=== PATIENT | female | born 1960 | race Caucasian/White ===

== ENCOUNTER 2016-12-11 21:56 | Emergency (ER) | payer MEDICARE, OTHER ==
[~2016-12-11 21:56] MED LIST: ABILIFY5 M1 PO; ASPI-COR81 M3 PO; ATRUD HHN; BRILINTA90 M1 PO; CIPROFLOXACIN500 MG PO; LEVAQUIN750 MG PO; LIPITOR40 MG; LIPITOR80 MG PO; METFORMIN500 M1 PO; NEU300 PO; NOR5 PO; NORCO1 TA2 PO; PAXIL40 MG PO; PRILOSEC20 MG PO; TRAZODONE100 MG PO; TRAZODONE50 M1 PO; VISTARIL25 MG PO; XANAX1 MG PO; ZOF4 PO
[2016-12-12 00:47] VITALS: BP 148/95
== END 2016-12-12 00:47 | disposition home or self-care (01) ==
LOC: ED 21:56
DX: B35.6 Tinea cruris (principal); E11.9 Type 2 diabetes mellitus without complications; I10 Essential (primary) hypertension; E78.00 Pure hypercholesterolemia, unspecified; I25.10 Atherosclerotic heart disease of native coronary artery without angina pectoris; E66.01 Morbid (severe) obesity due to excess calories; F17.210 Nicotine dependence, cigarettes, uncomplicated; Z91.02 Food additives allergy status; Z71.6 Tobacco abuse counseling
CPT/HCPCS: 99406

== ENCOUNTER 2016-12-24 14:54 | Inpatient (IN) | payer MEDICARE, OTHER ==
[~2016-12-24] VITALS: Ht 160 cm; Wt 101.6 kg
[2016-12-24 15:55] LABS: CALCIUM 9.2 mg/dL (8.5-10.1); CARBON DIOXIDE 25.8 mmol/L (21-32); CHLORIDE SERUM 107 mmol/L (98-107); CREATININE SERUM 0.8 mg/dL (0.6-1.0); GFR1 > 60 mL/min; GLUCOSE SERUM 108 mg/dL (74-106); POTASSIUM SERUM 3.9 mmol/L (3.5-5.1); SODIUM SERUM 141 mmol/L (136-145)
[2016-12-24 15:59] LABS: ALBUMIN 3.3 g/dL (3.4-5.0); ALKALINE PHOSPHATASE 102 U/L (46-116); ALT/SGPT 26 U/L (14-59); AST/SGOT 20 U/L (15-37); BILIRUBIN TOTAL 0.36 mg/dL (0.20-1.00); CHOLESTEROL 141 mg/dL (<200); CHOLESTEROL/HDL RATIO 3.3; HDL CHOLESTEROL 43 mg/dL (40-60); LIPASE 223 IU/L (73-393); TOTAL PROTEIN, SERUM 7.1 g/dL (6.4-8.2); TRIGLYCERIDES 221 mg/dL (<150)
[2016-12-24 16:07] LABS: FREE T4 0.82 ng/dL (0.76-1.46); FREE THYROXINE INDEX 2.6 ug/dL (1.4-4.5); T4(THYROXINE) 7.5 ug/dL (4.7-13.3)
[2016-12-24 16:11] LABS: T3 TOTAL 1.13 ng/mL
[2016-12-24 16:30] LABS: BASOPHIL % 0.6 % (0-2); PLATELET COUNT 258 x10^3mcL (130-400); RED CELL DISTRIBUTION WIDTH 16.4 % (11.5-14.5)
[2016-12-24 16:46] LABS: AMYLASE 65 U/L (25-115); LACTIC DEHYDROGENASE (LDH) 224 U/L (100-190)
[2016-12-24 17:21] VITALS: BP 122/89
[2016-12-24 17:23] VITALS: Ht 160 cm; Wt 101.6 kg
[2016-12-24 21:12] VITALS: BP 158/87
[2016-12-25 05:51] VITALS: BP 149/86
[2016-12-25 07:42] LABS: BASOPHIL % 0.5 % (0-2); PLATELET COUNT 243 x10^3mcL (130-400)
[2016-12-25 08:57] LABS: CALCIUM 8.2 mg/dL (8.5-10.1); CARBON DIOXIDE 26.1 mmol/L (21-32); CHLORIDE SERUM 105 mmol/L (98-107); CREATININE SERUM 0.5 mg/dL (0.6-1.0); GFR1 > 60 mL/min; GLUCOSE SERUM 106 mg/dL (74-106); PHOSPHOROUS 3.4 mg/dL (2.5-4.9); SODIUM SERUM 139 mmol/L (136-145)
[2016-12-25 10:00] VITALS: BP 183/88
[2016-12-25 11:07] LABS: microscopic required? YES; urine erythrocyte TRACE (NEGATIVE)
[2016-12-25 11:16] LABS: AMPHETAMINE QUAL UR NONE DETECTED (NEG <=1000)
[2016-12-25 14:00] VITALS: BP 165/76
[2016-12-25 21:20] VITALS: BP 151/92
[2016-12-26 06:21] VITALS: BP 129/71
[2016-12-26 07:08] LABS: CARBON DIOXIDE 28.2 mmol/L (21-32); CHLORIDE SERUM 104 mmol/L (98-107); CREATININE SERUM 0.7 mg/dL (0.6-1.0); GFR1 > 60 mL/min; GLUCOSE SERUM 115 mg/dL (74-106); MAGNESIUM 2.3 mg/dL (1.8-2.4); PHOSPHOROUS 3.8 mg/dL (2.5-4.9); POTASSIUM SERUM 3.6 mmol/L (3.5-5.1); SODIUM SERUM 141 mmol/L (136-145)
[2016-12-26 07:18] LABS: BASOPHIL % 0.6 % (0-2); PLATELET COUNT 288 x10^3mcL (130-400)
[2016-12-26 07:25] LABS: RED CELL DISTRIBUTION WIDTH 16.5 % (11.5-14.5)
[2016-12-26 09:15] VITALS: BP 148/80
[2016-12-26 13:15] VITALS: BP 139/85
== END 2016-12-26 18:03 | disposition left against medical advice (07) | DRG 391 ==
LOC: ED 14:54 → DU 16:08
PROVIDERS: Family Medicine; Specialist; ADMIT Family Medicine
DX: K21.9 Gastro-esophageal reflux disease without esophagitis (principal); N17.0 Acute kidney failure with tubular necrosis; I10 Essential (primary) hypertension; M50.31 Other cervical disc degeneration, high cervical region; J44.9 Chronic obstructive pulmonary disease, unspecified; E11.9 Type 2 diabetes mellitus without complications; I25.10 Atherosclerotic heart disease of native coronary artery without angina pectoris; E78.5 Hyperlipidemia, unspecified; F12.10 Cannabis abuse, uncomplicated; F41.0 Panic disorder [episodic paroxysmal anxiety]; F41.9 Anxiety disorder, unspecified; G47.00 Insomnia, unspecified; I25.2 Old myocardial infarction; Z79.82 Long term (current) use of aspirin; Z68.39 Body mass index [BMI] 39.0-39.9, adult; F17.210 Nicotine dependence, cigarettes, uncomplicated; Z95.5 Presence of coronary angioplasty implant and graft; Z79.84 Long term (current) use of oral hypoglycemic drugs; Z85.41 Personal history of malignant neoplasm of cervix uteri
CPT/HCPCS: 80307; 82962; 83880; 84439; C9113; G0480; J2060; J2405; J2765; J7030; Q0092; Q9966; Q9967

== ENCOUNTER 2018-08-01 21:01 | Inpatient (IN) | payer MEDICARE, OTHER ==
[~2018-08-01] VITALS: Ht 160 cm; Wt 81.2 kg
[2018-08-01 21:05] VITALS: Ht 160 cm; Wt 81.2 kg
[2018-08-01 21:42] LABS: BASOPHIL % 1.5 % (0-2); PLATELET COUNT 177 x10^3mcL (130-400); RED CELL DISTRIBUTION WIDTH 14.5 % (11.5-14.5)
[2018-08-01 21:53] LABS: CALCIUM 8.5 mg/dL (8.5-10.1); CARBON DIOXIDE 28.8 mmol/L (21-32); CHLORIDE SERUM 108 mmol/L (98-107); CREATININE SERUM 0.9 mg/dL (0.6-1.0); GFR1 > 60 mL/min; GLUCOSE SERUM 129 mg/dL (74-106); POTASSIUM SERUM 3.6 mmol/L (3.5-5.1); SODIUM SERUM 144 mmol/L (136-145)
[2018-08-01 21:58] LABS: ALKALINE PHOSPHATASE 99 U/L (46-116); ALT/SGPT 23 U/L (14-59); AST/SGOT 14 U/L (15-37); BILIRUBIN TOTAL 0.28 mg/dL (0.20-1.00); TOTAL PROTEIN, SERUM 7.3 g/dL (6.4-8.2)
[2018-08-01 21:59] LABS: ALBUMIN 3.3 g/dL (3.4-5.0)
[2018-08-01] MEDS ORDERED: AMO250L8 PO (22:12)
[2018-08-01] MEDS ORDERED: ZESTRIL20 MG PO (22:13)
[2018-08-01] MEDS ORDERED: ASPIR 8181 MG (22:14)
[2018-08-01] MEDS ORDERED: CARVEDILOL12.5 M1 (22:14)
[2018-08-01] MEDS ORDERED: BRILINTA90 M1 (22:14)
[2018-08-01] MEDS ORDERED: RANEXA500 M2 (22:14)
[2018-08-01] MEDS ORDERED: NITROSTAT0.4 MG (22:15)
[2018-08-01 23:29] VITALS: BP 114/67
[2018-08-02 02:30] VITALS: BP 114/67
[2018-08-02 02:34] LABS: CHOLESTEROL/HDL RATIO 3.5; MAGNESIUM 2.2 mg/dL (1.8-2.4); PHOSPHOROUS 3.8 mg/dL (2.5-4.9)
[2018-08-02 03:30] LABS: AMPHETAMINE QUAL UR NONE DETECTED (See below)
[2018-08-02 04:13] LABS: BASOPHIL % 0.4 % (0-2); PLATELET COUNT 158 x10^3mcL (130-400); RED CELL DISTRIBUTION WIDTH 14.5 % (11.5-14.5)
[2018-08-02 04:24] LABS: UA SPECIFIC GRAVITY 1.025 (1.005-1.035); microscopic required? YES; urine erythrocyte NEGATIVE (NEGATIVE)
[2018-08-02 04:25] LABS: CALCIUM 8.1 mg/dL (8.5-10.1); CHLORIDE SERUM 110 mmol/L (98-107); CREATININE SERUM 0.7 mg/dL (0.6-1.0); GFR1 > 60 mL/min; GLUCOSE SERUM 119 mg/dL (74-106); MAGNESIUM 2.2 mg/dL (1.8-2.4); PHOSPHOROUS 4.2 mg/dL (2.5-4.9); POTASSIUM SERUM 3.6 mmol/L (3.5-5.1); SODIUM SERUM 143 mmol/L (136-145)
[2018-08-02 05:33] VITALS: BP 121/68
[2018-08-02 09:05] VITALS: BP 140/74
[2018-08-02 12:38] VITALS: BP 132/79
[2018-08-02 15:33] VITALS: BP 127/74
[2018-08-02 20:53] VITALS: BP 135/78
[2018-08-03 04:55] VITALS: BP 105/81
[2018-08-03 08:42] VITALS: BP 122/74
[2018-08-03 11:36] VITALS: BP 136/79
[2018-08-03 16:31] VITALS: BP 112/67
[2018-08-03 21:02] VITALS: BP 136/73
[2018-08-04 05:49] VITALS: BP 145/83
[2018-08-04 06:46] LABS: PLATELET COUNT 213 x10^3mcL (130-400); RED CELL DISTRIBUTION WIDTH 14.5 % (11.5-14.5)
[2018-08-04 07:23] VITALS: BP 133/85
[2018-08-04 08:16] LABS: CALCIUM 9.1 mg/dL (8.5-10.1); CARBON DIOXIDE 26.5 mmol/L (21-32); CHLORIDE SERUM 104 mmol/L (98-107); CREATININE SERUM 0.8 mg/dL (0.6-1.0); GFR1 > 60 mL/min; GLUCOSE SERUM 154 mg/dL (74-106); PHOSPHOROUS 3.4 mg/dL (2.5-4.9); SODIUM SERUM 138 mmol/L (136-145)
[2018-08-04 10:59] VITALS: BP 141/83
[2018-08-04 12:01] LABS: BAND NEUTROPHIL 13 % (0-10); MONOCYTE 3 % (0-7); SEGMENTED NEUTROPHILS 80 % (37-75); rbc morphology (normal/abnorm) NORMAL (NORMAL)
[2018-08-04 12:02] LABS: PLATELET MORPHOLOGY PLATELETS NORMAL
[2018-08-04 17:03] VITALS: BP 129/78
[2018-08-04 20:12] VITALS: BP 159/94
[2018-08-05 05:28] VITALS: BP 158/88
[2018-08-05 08:17] VITALS: BP 168/97
[2018-08-05 09:27] VITALS: BP 168/103
== END 2018-08-05 11:09 | disposition left against medical advice (07) | DRG 205 ==
LOC: ED 21:01 → DU 22:47
PROVIDERS: Emergency Medicine; Internal Medicine
DX: M94.0 Chondrocostal junction syndrome [Tietze] (principal); J18.9 Pneumonia, unspecified organism; N17.0 Acute kidney failure with tubular necrosis; J44.1 Chronic obstructive pulmonary disease with (acute) exacerbation; E44.1 Mild protein-calorie malnutrition; E11.9 Type 2 diabetes mellitus without complications; I25.10 Atherosclerotic heart disease of native coronary artery without angina pectoris; F15.21 Other stimulant dependence, in remission; F14.21 Cocaine dependence, in remission; F41.9 Anxiety disorder, unspecified; F12.10 Cannabis abuse, uncomplicated; I10 Essential (primary) hypertension; D72.829 Elevated white blood cell count, unspecified; F31.9 Bipolar disorder, unspecified; I25.2 Old myocardial infarction; Z79.82 Long term (current) use of aspirin; Z68.31 Body mass index [BMI] 31.0-31.9, adult; F17.210 Nicotine dependence, cigarettes, uncomplicated; Z79.84 Long term (current) use of oral hypoglycemic drugs; Z95.5 Presence of coronary angioplasty implant and graft; Z85.41 Personal history of malignant neoplasm of cervix uteri
CPT/HCPCS: 82962; 83880; 85378; J1956; J2270; J2920; J3480; J7030; J7620; J7626; Q0162

== ENCOUNTER 2018-09-01 21:02 | Inpatient (IN) | payer MEDICARE, OTHER ==
[~2018-09-01] VITALS: Ht 157.5 cm; Wt 80.5 kg
[~2018-09-01 21:02] MED LIST changes: +AMO250L8 PO; +ASPIR 8181 MG; +BRILINTA90 M1; +CARVEDILOL12.5 M1; +NITROSTAT0.4 MG; +RANEXA500 M2; +ZESTRIL20 MG PO
[2018-09-01 21:21] VITALS: Ht 157.5 cm; Wt 80.5 kg
[2018-09-01 22:15] LABS: BASOPHIL % 0.1 % (0-2); PLATELET COUNT 281 x10^3mcL (130-400)
[2018-09-01 22:16] LABS: RED CELL DISTRIBUTION WIDTH 14.8 % (11.5-14.5)
[2018-09-01 22:37] LABS: CALCIUM 8.6 mg/dL (8.5-10.1); CARBON DIOXIDE 24.3 mmol/L (21-32); CHLORIDE SERUM 103 mmol/L (98-107); CREATININE SERUM 0.8 mg/dL (0.6-1.0); GFR1 > 60 mL/min; GLUCOSE SERUM 126 mg/dL (74-106); POTASSIUM SERUM 3.2 mmol/L (3.5-5.1); SODIUM SERUM 138 mmol/L (136-145)
[2018-09-01 22:40] LABS: ALBUMIN 3.6 g/dL (3.4-5.0); ALKALINE PHOSPHATASE 91 U/L (46-116); ALT/SGPT 28 U/L (14-59); AST/SGOT 21 U/L (15-37)
[2018-09-01] MEDS ORDERED: METOPROLOL TART50 MG PO (23:23)
[2018-09-01] MEDS ORDERED: TRAZODONE50 M1 PO (23:24)
[2018-09-01] MEDS ORDERED: HCTZ/LISINOPRIL1 TA1 PO (23:24)
[2018-09-02] VITALS: BP 149/87
[2018-09-02 00:34] LABS: PHOSPHOROUS 3.2 mg/dL (2.5-4.9)
[2018-09-02 00:36] LABS: CHOLESTEROL/HDL RATIO 4.4
[2018-09-02 04:50] VITALS: BP 115/63
[2018-09-02 07:22] LABS: CALCIUM 8.2 mg/dL (8.5-10.1); CARBON DIOXIDE 25.3 mmol/L (21-32); CHLORIDE SERUM 105 mmol/L (98-107); CREATININE SERUM 0.8 mg/dL (0.6-1.0); GFR1 > 60 mL/min; GLUCOSE SERUM 99 mg/dL (74-106); PHOSPHOROUS 3.4 mg/dL (2.5-4.9); POTASSIUM SERUM 3.5 mmol/L (3.5-5.1); SODIUM SERUM 139 mmol/L (136-145)
[2018-09-02 07:34] LABS: BASOPHIL % 0.4 % (0-2); PLATELET COUNT 233 x10^3mcL (130-400)
[2018-09-02 07:45] LABS: RED CELL DISTRIBUTION WIDTH 14.9 % (11.5-14.5)
[2018-09-02 09:30] VITALS: BP 123/71
[2018-09-02 09:32] LABS: UA SPECIFIC GRAVITY >=1.030 (1.005-1.035); microscopic required? YES; urine erythrocyte NEGATIVE (NEGATIVE)
[2018-09-02 17:47] VITALS: BP 133/77
[2018-09-02 21:08] VITALS: BP 115/56
[2018-09-03 05:59] VITALS: BP 104/55
[2018-09-03 06:09] LABS: BASOPHIL % 0.6 % (0-2); PLATELET COUNT 221 x10^3mcL (130-400); RED CELL DISTRIBUTION WIDTH 14.4 % (11.5-14.5)
[2018-09-03 06:35] LABS: CALCIUM 8.6 mg/dL (8.5-10.1); CARBON DIOXIDE 25.3 mmol/L (21-32); CHLORIDE SERUM 103 mmol/L (98-107); CREATININE SERUM 0.8 mg/dL (0.6-1.0); GFR1 > 60 mL/min; GLUCOSE SERUM 74 mg/dL (74-106); MAGNESIUM 1.9 mg/dL (1.8-2.4); PHOSPHOROUS 2.7 mg/dL (2.5-4.9); SODIUM SERUM 138 mmol/L (136-145)
[2018-09-03 09:15] VITALS: BP 93/52
[2018-09-03 11:47] VITALS: BP 93/52
== END 2018-09-03 12:05 | disposition home or self-care (01) | DRG 205 ==
LOC: ED 21:02 → DU 22:57
PROVIDERS: Emergency Medicine; General Practice; Internal Medicine
DX: M94.0 Chondrocostal junction syndrome [Tietze] (principal); N17.0 Acute kidney failure with tubular necrosis; I10 Essential (primary) hypertension; I25.10 Atherosclerotic heart disease of native coronary artery without angina pectoris; E87.6 Hypokalemia; J44.9 Chronic obstructive pulmonary disease, unspecified; A08.4 Viral intestinal infection, unspecified; F32.9 Major depressive disorder, single episode, unspecified; F41.1 Generalized anxiety disorder; E78.5 Hyperlipidemia, unspecified; I25.2 Old myocardial infarction; Z68.31 Body mass index [BMI] 31.0-31.9, adult; Z95.5 Presence of coronary angioplasty implant and graft; Z85.41 Personal history of malignant neoplasm of cervix uteri; F17.210 Nicotine dependence, cigarettes, uncomplicated
CPT/HCPCS: 82962; 83880; 87046; 87046-59; J1885; J2270; J2405; J3010; J7030; Q0092

== ENCOUNTER 2018-10-02 15:23 | Emergency (ER) | payer MEDICARE, OTHER ==
[~2018-10-02] VITALS: Ht 157.5 cm; Wt 80.3 kg
[~2018-10-02 15:23] MED LIST changes: +HCTZ/LISINOPRIL1 TA1 PO; +METOPROLOL TART50 MG PO
[2018-10-02 15:33] VITALS: Ht 157.5 cm; Wt 80.3 kg
[2018-10-02 17:45] VITALS: BP 160/89
== END 2018-10-02 17:45 | disposition home or self-care (01) ==
LOC: ED 15:23
DX: J06.9 Acute upper respiratory infection, unspecified (principal); J44.1 Chronic obstructive pulmonary disease with (acute) exacerbation; I10 Essential (primary) hypertension; E11.9 Type 2 diabetes mellitus without complications; K21.9 Gastro-esophageal reflux disease without esophagitis; F31.9 Bipolar disorder, unspecified; I25.2 Old myocardial infarction; Z88.8 Allergy status to other drugs, medicaments and biological substances; Z85.41 Personal history of malignant neoplasm of cervix uteri
CPT/HCPCS: J3010; J7512; J7613; J7644; Q0092; Q0162

== ENCOUNTER 2018-10-26 18:17 | Inpatient (IN) | payer MEDICARE, OTHER ==
[~2018-10-26] VITALS: Ht 157.5 cm; Wt 79.9 kg
[2018-10-26 18:35] VITALS: Ht 157.5 cm; Wt 79.9 kg
[2018-10-26 19:17] LABS: BASOPHIL % 0.3 % (0-2); PLATELET COUNT 200 x10^3mcL (130-400); RED CELL DISTRIBUTION WIDTH 14.9 % (11.5-14.5)
[2018-10-26 19:22] LABS: CALCIUM 9.1 mg/dL (8.5-10.1); CARBON DIOXIDE 29.2 mmol/L (21-32); CHLORIDE SERUM 103 mmol/L (98-107); CREATININE SERUM 0.9 mg/dL (0.6-1.0); GFR1 > 60 mL/min; GLUCOSE SERUM 103 mg/dL (74-106); POTASSIUM SERUM 4.1 mmol/L (3.5-5.1); SODIUM SERUM 139 mmol/L (136-145)
[2018-10-26 19:26] LABS: ALBUMIN 3.4 g/dL (3.4-5.0); ALKALINE PHOSPHATASE 81 U/L (46-116); ALT/SGPT 17 U/L (14-59); AST/SGOT 16 U/L (15-37); BILIRUBIN TOTAL 0.52 mg/dL (0.20-1.00); TOTAL PROTEIN, SERUM 7.9 g/dL (6.4-8.2)
[2018-10-26] MEDS ORDERED: KROGER NIC21 MG/24 H (22:58)
[2018-10-27] VITALS (7 sets, daily range): BP systolic 103–136; BP diastolic 58–85
[2018-10-27 00:15] LABS: CHOLESTEROL/HDL RATIO 3.6; MAGNESIUM 2.4 mg/dL (1.8-2.4); PHOSPHOROUS 4.3 mg/dL (2.5-4.9)
[2018-10-27 06:13] LABS: PLATELET COUNT 211 x10^3mcL (130-400)
[2018-10-27 06:27] LABS: CALCIUM 8.8 mg/dL (8.5-10.1); CARBON DIOXIDE 28.1 mmol/L (21-32); CHLORIDE SERUM 100 mmol/L (98-107); GFR1 > 60 mL/min; GLUCOSE SERUM 197 mg/dL (74-106); MAGNESIUM 2.4 mg/dL (1.8-2.4); SODIUM SERUM 137 mmol/L (136-145)
[2018-10-27 07:12] LABS: BASOPHIL % 0 % (0-2); RED CELL DISTRIBUTION WIDTH 15.1 % (11.5-14.5)
[2018-10-27 16:46] LABS: AMPHETAMINE QUAL UR NONE DETECTED (See below)
[2018-10-28 05:37] VITALS: BP 115/64
[2018-10-28 07:01] LABS: CALCIUM 8.5 mg/dL (8.5-10.1); CARBON DIOXIDE 24.4 mmol/L (21-32); CHLORIDE SERUM 106 mmol/L (98-107); CREATININE SERUM 0.8 mg/dL (0.6-1.0); GFR1 > 60 mL/min; GLUCOSE SERUM 181 mg/dL (74-106); POTASSIUM SERUM 3.7 mmol/L (3.5-5.1); SODIUM SERUM 140 mmol/L (136-145)
[2018-10-28 07:30] LABS: PLATELET COUNT 197 x10^3mcL (130-400)
[2018-10-28 07:48] LABS: BASOPHIL % 0 % (0-2); RED CELL DISTRIBUTION WIDTH 15.1 % (11.5-14.5)
[2018-10-28 08:00] VITALS: BP 126/76
[2018-10-28 13:40] VITALS: BP 141/78
[2018-10-28] MEDS ORDERED: TOPAMAX25 MG PO (13:48)
[2018-10-28] MEDS ORDERED: MEDDP PO (13:49)
[2018-10-28 14:21] VITALS: BP 141/78
== END 2018-10-28 14:37 | disposition home or self-care (01) | DRG 193 ==
LOC: ED 18:17 → DU 22:15
PROVIDERS: Emergency Medicine; ADMIT Internal Medicine
DX: J18.9 Pneumonia, unspecified organism (principal); J96.00 Acute respiratory failure, unspecified whether with hypoxia or hypercapnia; F31.60 Bipolar disorder, current episode mixed, unspecified; J44.1 Chronic obstructive pulmonary disease with (acute) exacerbation; E11.65 Type 2 diabetes mellitus with hyperglycemia; I25.10 Atherosclerotic heart disease of native coronary artery without angina pectoris; F41.1 Generalized anxiety disorder; F12.10 Cannabis abuse, uncomplicated; F17.210 Nicotine dependence, cigarettes, uncomplicated; I25.2 Old myocardial infarction; Z68.29 Body mass index [BMI] 29.0-29.9, adult; Z95.5 Presence of coronary angioplasty implant and graft; Z79.84 Long term (current) use of oral hypoglycemic drugs
CPT/HCPCS: 36600; 82962; 83880; 87804; 94150; G0378; J0456; J0696; J2920; J2930; J7030; J7050; J7613; J7620; J7644; Q0092

== ENCOUNTER 2018-12-08 07:23 | Inpatient (IN) | payer MEDICARE, OTHER ==
[~2018-12-08] VITALS: Ht 160 cm; Wt 84.1 kg
[~2018-12-08 07:23] MED LIST changes: +KROGER NIC21 MG/24 H; +MEDDP PO; +TOPAMAX25 MG PO
[2018-12-08 07:27] VITALS: Ht 160 cm; Wt 84.1 kg
[2018-12-08 08:05] LABS: BASOPHIL % 0.5 % (0-2); PLATELET COUNT 245 x10^3mcL (130-400)
[2018-12-08 08:07] LABS: RED CELL DISTRIBUTION WIDTH 15.8 % (11.5-14.5)
[2018-12-08 08:19] LABS: CALCIUM 8.4 mg/dL (8.5-10.1); CARBON DIOXIDE 24.2 mmol/L (21-32); CHLORIDE SERUM 108 mmol/L (98-107); CREATININE SERUM 0.9 mg/dL (0.6-1.0); GFR1 > 60 mL/min; GLUCOSE SERUM 120 mg/dL (74-106); SODIUM SERUM 143 mmol/L (136-145)
[2018-12-08 08:23] LABS: ALBUMIN 3.4 g/dL (3.4-5.0); ALKALINE PHOSPHATASE 98 U/L (46-116); ALT/SGPT 36 U/L (14-59); AST/SGOT 30 U/L (15-37); BILIRUBIN TOTAL 0.48 mg/dL (0.20-1.00); TOTAL PROTEIN, SERUM 7.1 g/dL (6.4-8.2)
[2018-12-08 11:14] VITALS: BP 141/80
[2018-12-08 13:10] VITALS: BP 141/80
[2018-12-08 16:43] VITALS: BP 137/79
[2018-12-08 21:05] VITALS: BP 146/85
[2018-12-09 05:57] VITALS: BP 143/84
[2018-12-09] MEDS ORDERED: ZITHROMAX TRI-500 MG PO (08:53)
[2018-12-09] MEDS ORDERED: BREO ELLIPTA1 PO1 IH (08:53)
[2018-12-09] MEDS ORDERED: SINGULAIR10 MG PO (08:54)
[2018-12-09] MEDS ORDERED: PROAIR HFA8.5 GM IH (08:55)
[2018-12-09 08:59] VITALS: BP 132/78
[2018-12-09 11:57] VITALS: BP 137/80
[2018-12-09 12:05] VITALS: BP 137/80
== END 2018-12-09 14:10 | disposition home or self-care (01) | DRG 194 ==
LOC: ED 07:23 → DU 09:35
PROVIDERS: Emergency Medicine; ADMIT Internal Medicine
DX: R09.1 Pleurisy (principal); J44.1 Chronic obstructive pulmonary disease with (acute) exacerbation; I11.9 Hypertensive heart disease without heart failure; I25.10 Atherosclerotic heart disease of native coronary artery without angina pectoris; E11.59 Type 2 diabetes mellitus with other circulatory complications; F32.9 Major depressive disorder, single episode, unspecified; F31.9 Bipolar disorder, unspecified; F41.9 Anxiety disorder, unspecified; I25.2 Old myocardial infarction; Z95.5 Presence of coronary angioplasty implant and graft; Z85.41 Personal history of malignant neoplasm of cervix uteri; Z79.82 Long term (current) use of aspirin
CPT/HCPCS: 83880; J0456; J0696; J1650; J1885; J2060; J2405; J2920; J3490; J7050; J7620; Q0092

== ENCOUNTER 2018-12-23 07:48 | Inpatient (IN) | payer MEDICARE, OTHER ==
[~2018-12-23] VITALS: Ht 160 cm; Wt 88.9 kg
[~2018-12-23 07:48] MED LIST changes: +BREO ELLIPTA1 PO1 IH; +PROAIR HFA8.5 GM IH; +SINGULAIR10 MG PO; +ZITHROMAX TRI-500 MG PO
[2018-12-23 07:53] VITALS: Ht 160 cm; Wt 88.9 kg
[2018-12-23 08:35] LABS: PLATELET COUNT 179 x10^3mcL (130-400)
[2018-12-23 08:36] LABS: RED CELL DISTRIBUTION WIDTH 16.6 % (11.5-14.5)
[2018-12-23 08:53] LABS: FREE T4 0.94 ng/dL (0.76-1.46); FREE THYROXINE INDEX 2.8 ug/dL (1.4-4.5); T4(THYROXINE) 8.1 ug/dL (4.7-13.3)
[2018-12-23 09:03] LABS: T3 TOTAL 1.09 ng/mL
[2018-12-23 09:47] LABS: ALBUMIN 3.3 g/dL (3.4-5.0); ALKALINE PHOSPHATASE 93 U/L (46-116); ALT/SGPT 78 U/L (14-59); AST/SGOT 34 U/L (15-37); BILIRUBIN TOTAL 0.51 mg/dL (0.20-1.00); C REACTIVE PROTEIN 1.4 mg/dL (<=0.9); CALCIUM 8.2 mg/dL (8.5-10.1); CARBON DIOXIDE 25.4 mmol/L (21-32); CHLORIDE SERUM 105 mmol/L (98-107); CREATININE SERUM 0.7 mg/dL (0.6-1.0); GFR1 > 60 mL/min; GLUCOSE SERUM 116 mg/dL (74-106); POTASSIUM SERUM 4.2 mmol/L (3.5-5.1); SODIUM SERUM 139 mmol/L (136-145); TOTAL PROTEIN, SERUM 6.7 g/dL (6.4-8.2)
[2018-12-23 09:58] LABS: microscopic required? NO
[2018-12-23] MEDS ORDERED: XAN1 PO (10:13)
[2018-12-23] MEDS ORDERED: BRILINTA90 M1 PO (10:13)
[2018-12-23] MEDS ORDERED: TRAZODONE150 M1 PO (10:14)
[2018-12-23] MEDS ORDERED: TRAMADOL HCL50 MG PO (10:15)
[2018-12-23] MEDS ORDERED: ALBUD HHN (10:15)
[2018-12-23] MEDS ORDERED: LIDOCAINE AND P1 CRE TOP (10:16)
[2018-12-23] MEDS ORDERED: BENADRYL ALLERG25 M1 PO (10:16)
[2018-12-23] MEDS ORDERED: BREO ELLIPTA1 PO1 IH (10:17)
[2018-12-23] MEDS ORDERED: KROGER NIC21 MG/24 H TOP (10:18)
[2018-12-23] MEDS ORDERED: ASPIRIN81 MG PO (10:18)
[2018-12-23 10:32] LABS: ERYTHROCYTE SED RATE 9 mm/hr (0-30)
[2018-12-23 10:38] LABS: UA SPECIFIC GRAVITY 1.025 (1.005-1.035); urine erythrocyte NEGATIVE (NEGATIVE)
[2018-12-23 11:13] LABS: BASOPHIL 0 % (0-2); MONOCYTE 4 % (0-7)
[2018-12-23 11:14] LABS: BAND NEUTROPHIL 10 % (0-10); SEGMENTED NEUTROPHILS 80 % (37-75)
[2018-12-23 11:15] LABS: PLATELET MORPHOLOGY PLATELETS NORMAL; rbc morphology (normal/abnorm) ABNORMAL (NORMAL)
[2018-12-23 14:19] VITALS: BP 135/68
[2018-12-23 14:20] VITALS: BP 156/89
[2018-12-23 17:27] VITALS: BP 146/85
[2018-12-23 19:20] VITALS: BP 126/69
== END 2018-12-24 04:25 | disposition left against medical advice (07) | DRG 190 ==
LOC: ED 07:48 → DU 09:51
PROVIDERS: Specialist; ADMIT Internal Medicine
DX: J44.1 Chronic obstructive pulmonary disease with (acute) exacerbation (principal); N17.0 Acute kidney failure with tubular necrosis; E11.9 Type 2 diabetes mellitus without complications; I10 Essential (primary) hypertension; F31.9 Bipolar disorder, unspecified; G47.33 Obstructive sleep apnea (adult) (pediatric); F41.9 Anxiety disorder, unspecified; F17.210 Nicotine dependence, cigarettes, uncomplicated; I25.10 Atherosclerotic heart disease of native coronary artery without angina pectoris; Z95.5 Presence of coronary angioplasty implant and graft; I25.2 Old myocardial infarction; Z79.84 Long term (current) use of oral hypoglycemic drugs
CPT/HCPCS: 36600; 82962; 83880; 84439; J0456; J0696; J1650; J1956; J2270; J2920; J2930; J3010; J7030; J7613; J7620; J7644; Q0092

== ENCOUNTER 2019-03-28 06:07 | Inpatient (IN) | payer MEDICARE, OTHER ==
[~2019-03-28] VITALS: Ht 160 cm; Wt 77.6 kg
[~2019-03-28 06:07] MED LIST changes: +ALBUD HHN; +ASPIRIN81 MG PO; +BENADRYL ALLERG25 M1 PO; +KROGER NIC21 MG/24 H TOP; +LIDOCAINE AND P1 CRE TOP; +TRAMADOL HCL50 MG PO; +TRAZODONE150 M1 PO; +XAN1 PO
[2019-03-28 06:12] VITALS: Ht 160 cm; Wt 77.6 kg
--- NOTE | 2019-03-28 06:26 | NUR ---
PATIENT SEEN WITH COMPLAINT OF HAVING PROGRESSIVE SOB. REPORTS SHE HAS COPD AND RAN OUT OF HER INHALER. SEEN WITH MIL DYSPNEA AT REST. PATIENT REQUESTING OXYGEN. SATURATION IS 99%;. PATIENT WAS PLACE ON 1.5 LITER OF OXYGEN. PATIENT IS WAIITNG TO BE SEEN BY .
--- NOTE | 2019-03-28 07:03 | NUR ---
PORTABLE CHEST XRAY WAS DONE.
--- NOTE | 2019-03-28 07:13 | NUR ---
CAB DRIVER AT THE BEDSIDE TO DRAW BLOOD.
[2019-03-28 07:37] LABS: BASOPHIL % 0.5 % (0-2); PLATELET COUNT 240 x10^3mcL (130-400); RED CELL DISTRIBUTION WIDTH 16.3 % (11.5-14.5)
[2019-03-28 07:40] LABS: CALCIUM 9.1 mg/dL (8.5-10.1); CARBON DIOXIDE 22.9 mmol/L (21-32); CHLORIDE SERUM 106 mmol/L (98-107); CREATININE SERUM 0.7 mg/dL (0.6-1.0); GFR1 > 60 mL/min; GLUCOSE SERUM 83 mg/dL (74-106); POTASSIUM SERUM 3.6 mmol/L (3.5-5.1); SODIUM SERUM 140 mmol/L (136-145)
[2019-03-28 07:44] LABS: ALKALINE PHOSPHATASE 89 U/L (46-116); ALT/SGPT 21 U/L (14-59); AST/SGOT 14 U/L (15-37); BILIRUBIN TOTAL 0.57 mg/dL (0.20-1.00); TOTAL PROTEIN, SERUM 6.9 g/dL (6.4-8.2)
--- NOTE | 2019-03-28 07:44 | NUR ---
PT DENIES SOB AT THIS TIME STATESz"IM SO HUNGRY "I WILL INFORM DR ESTES
[2019-03-28 07:45] LABS: ALBUMIN 3.1 g/dL (3.4-5.0)
--- NOTE | 2019-03-28 08:34 | NUR ---
PER DR DARIO SMALL FOR REGULAR FOOD TRAY, ORDERED BY [employer] TECH
--- NOTE | 2019-03-28 08:48 | NUR ---
BREATHING TX IN PROGRESS AT THIS TIME,PT A/AX4 TOLERATING VERY WELL
--- NOTE | 2019-03-28 08:52 | NUR ---
BLOD CULTURES JUST NOW COLLECTED BY LAB PER ORDERS I WILL START THE IV ANTIBIOTICS
--- NOTE | 2019-03-28 09:31 | NUR ---
PT EATING A BREAKFAST TRAY PER ORDERS, PT ADMITS TO FEELING BETTER WITH HER RIGHT UPPER CP PAIN FROM EARLIER, I WONT GIVE ANY MORE NITRO AT THIS POINT. PT REMAINS ON CM NSR NO ECT. C/L IN REACH
--- NOTE | 2019-03-28 10:15 | NUR ---
RECIEVED REPORT FROM TREVOR CAMPUZANO. AT BEDSIDE PT IS AAOX4, RESPS E/U, SKIN IS PINK, WARM AND DRY. PT CALM AND COOPERATIVE.
--- NOTE | 2019-03-28 12:05 | NUR ---
PT RESTING IN POSITOIN OF COMFORT. NO ACUTE DISTRESS NOTED. RESPS E/U, SKIN IS PINK, WARM AND DRY.
--- NOTE | 2019-03-28 12:14 | NUR ---
PT DENIES TAKING ANY HOME MEDS FOR >45 DAYS
--- NOTE | 2019-03-28 12:17 | NUR ---
DAUGHTER AT BEDSIDE NOW. PT ALSO GIVEN A LUNCH TRAY.
--- NOTE | 2019-03-28 12:25 | NUR ---
REPORT HAND-OFF TO TREVOR VAZQUEZ FROM THE TELE UNIT.
--- NOTE | 2019-03-28 12:42 | NUR ---
PT C/O LEFT HAND IV SITE "ITS IN THE WAY OF EVERYTHING BUT IM A HARD STICK" I OFFERED TO RESTART IV, I WAS ABLE TO GET IT RESTARTED IN RIGHT HAND 22G WITH GOOD BLOOD RETURN IV NOW INFUSING PER ORDERS.
[2019-03-28 13:01] VITALS: BP 145/73
[2019-03-28 13:19] VITALS: BP 145/92
--- NOTE | 2019-03-28 13:34 | NUR ---
RECEIVED PT FROM ER VIA [facility] ACCOMPANIED WITH NURSE AND EMT, PT SEEN, ALERT AND ORIENTED, DENIES DIZZINESS BUT C/O OF HEADACHE, BREATHING EVEN AND UNLABORED, MILD SOB ON EXERTION, LUNG SOUNDS DIMISHSED, ON ROOM AIR WITH SPO2:100%, NO RESP DISTRESS NOTED, ON TELE#1 NSR W/BBB AND ST ELEVATION, DENIES CHEST PAIN AT THIS TIME, IVF INFUSING WELL WITH LEVAQUIN TO RW, PULSES PALPABLE, NO EDEMA NOTED, GENERALIZED WEAKNESS, USES WALKER, CANE OR WC AT HOME, C/O OF NAUSEA BUT NO VOMITING NOTED, ABD SOFT WITH ACTIVE BS, NO BM AT THIS TIME, DENIES ANY PROBLEM WITH VOIDING, NO DISTRESS NOTED, WILL KEEP TO MONITOR.
[2019-03-28 15:59] VITALS: BP 150/99
--- NOTE | 2019-03-28 16:30 | NUR ---
SPOT ACCUCK 105.
--- NOTE | 2019-03-28 19:13 | NUR ---
POOR APPETITE WITH DINNER, VERY WEEPY OVER PERSONAL ISSUES. SHE WANTS TO GO HOME BUT DOES NOT HAVE ANY IDEAL SITUATION TO GO TO WHEN SHE LEAVES. GUIDO IN ER. ASHLEIGH ON MED SURG FLOOR, NS 50 CC HOUR. VSS. INDEPENDENT W ADL'S. BREATHING FREELY ON RA. CALL LIGHT WITHIN REACH.
--- NOTE | 2019-03-28 20:08 | NUR ---
PT RECIEVED AAO REG RESP NO SOB V/S STABLE,IV INFUSING WELL WITH THE SITE PATENT AND INTACT,PT ON TELE MONITOR AND IN NSR NO ECTOPY OR CHEST PAIN AT THIS TIME,BED IN THE LOW POSITION AND LOCKED,CALL LIGHT EASY REACHED AND WILL CONTINUE TO MONITOR.
[2019-03-28 20:51] VITALS: BP 127/82
--- NOTE | 2019-03-28 23:07 | NUR ---
PT REFUSED TO HAVE THE LABS DONE TONIGHT WILL NOTIFY THE DOCTOR,WILL CONTINUE TO MONITOR.
[2019-03-29 00:55] LABS: microscopic required? NO
[2019-03-29 01:07] LABS: UA SPECIFIC GRAVITY <=1.005 (1.005-1.035); urine erythrocyte NEGATIVE (NEGATIVE)
[2019-03-29 05:40] VITALS: BP 107/55
--- NOTE | 2019-03-29 06:27 | NUR ---
PT HAD A RESTING NIGHT NO CHANGE AT THUIS TIME,WILL CONTINUE TO MONITOR.
[2019-03-29 07:46] VITALS: BP 112/68
--- NOTE | 2019-03-29 08:00 | NUR ---
ALERT AND ORIENTED. WAKING UP FOR BREAKFAST. DENIES PAIN. NO RESP DISTRESS NOTED. CONTINUES ON RT PROTOCOL. FAINT CRACKLES. INDEPENDENT W ADL'S. VSS. TELE # 1 SR. NS INFUSING 50 CC HOUR LEFT FA. BED IN LOW POSITION. HOB SLIGHTLY ELEVATED. CALL LIGHT WITHIN REACH.
--- NOTE | 2019-03-29 10:22 | NUR ---
BP PRIOR TO ADMINOF LISINOPRIL AND LOPRESSOR 112/68 HR 67. POST 89/57 HR 68.L PAGED AMMONIA REFRIGERATION TECHNICIAN. STUDENT WILL TAKE BP IN 10 MINUTES.
--- NOTE | 2019-03-29 10:45 | NUR ---
RETAKE BP LT 107/67 RT 106/70.
[2019-03-29 13:10] VITALS: BP 101/55
[2019-03-29 17:41] VITALS: BP 105/72
--- NOTE | 2019-03-29 18:53 | NUR ---
PT SLEEPING OFF AND ON THIS SHIFT. CONTINUES TO HAVE INTERMITTENT EPISODES OF CRYING R/T PERSONAL PROBLEMS. CONCERNED ABOUT BEING HOMELESS. SAYS SHE HAS NO PLACE TO PLUG IN HER BREATHING TX MACHINE. ROCEPHIN AND ZITHROMAX IV ABX, RT PROTOCOL. INDEPENDENT W ADL'S. CALL LIGHT WITHIN REACH.
--- NOTE | 2019-03-29 19:10 | NUR ---
CARE ASSUMED FROM OUTGOING RN. PT ASLEEP COMFORTABLY IN BED. NO ACUTE DISTRESS NOTED. EVEN AND UNLABORED RESPIRATIONS ON RA. IV PATENT AND INTACT RUNNING FLUIDS PER EMAR. ON TELE #1 READING SR 63 WITH BORDERLINE BBB. BED IN LOWEST POSITION. SIDE RAILS UPX2. CALL LIGHT WITHIN REACH. WILL CONTINUE TO MONITOR.
--- NOTE | 2019-03-30 01:26 | NUR ---
PT ASLEEP COMFORTABLY IN BED. NO ACUTE DISTRESS NOTED. EVEN AND UNLABORED RESPIRATIONS ON RA. ON TELE#1 READING SR 61 WITH BORDERLINE BBB. IV PATENT AND INTACT RUNNING FLUIDS PER EMAR. BED IN LOWEST POSITION. SIDE RAILS UPX2. CALL LIGHT WITHIN REACH. WILL CONTINUE TO MONITOR.
[2019-03-30 05:52] VITALS: BP 92/57
--- NOTE | 2019-03-30 06:34 | NUR ---
PT SLEPT COMFORTABLY IN INTERVALS THROUGHOUT THE SHIFT. NO ACUTE CHANGES NOTED. EVEN AND UNLABORED RESPIRTAIONS ON RA. IV PATENT AND INTACT RUNNING FLUIDS PER EMAR. ONT TELE #1 READING SR 62 WITH BORDERLINE BBB. ALL NEEDS TENDED TO AND MET. ALL SCHEDULED MEDICATIONS GIVEN. BED IN LOWEST POSITION. SIDE RAILS UPX2. CALL LIGHT WITHIN REACH. WILL ENDORSE TO ONCOMING SHIFT.
[2019-03-30 06:47] LABS: CALCIUM 8.4 mg/dL (8.5-10.1); CARBON DIOXIDE 23.8 mmol/L (21-32); CHLORIDE SERUM 112 mmol/L (98-107); CREATININE SERUM 0.8 mg/dL (0.6-1.0); GFR1 > 60 mL/min; GLUCOSE SERUM 83 mg/dL (74-106); POTASSIUM SERUM 4.2 mmol/L (3.5-5.1); SODIUM SERUM 146 mmol/L (136-145)
[2019-03-30 06:53] LABS: BASOPHIL % 1.2 % (0-2); PLATELET COUNT 217 x10^3mcL (130-400)
[2019-03-30 07:15] VITALS: BP 104/60
--- NOTE | 2019-03-30 07:20 | NUR ---
REPORT RECEIVED FROM PETRA MURRAY. PATIENT FOUND RESTING IN BED LEFT SIDE LAYING. BREATHING REGULAR AND UNLABORED, EYES CLOSED, SLEEPING. ROUSABLE TO SOUND AND A/OX4. TELE #[address], IV TO LEFT FOREARM INFUSING WELL. CALL LIGHT IS WITHIN REACH, BED IN LOWEST POSITION, WILL CONTINUE TO MONITOR
[2019-03-30 07:56] LABS: RED CELL DISTRIBUTION WIDTH 16.6 % (11.5-14.5)
--- NOTE | 2019-03-30 08:57 | NUR ---
ADMINISTERED MEDICATIONS PER NOV. HELD BLOOD PRESSURE MEDICATIONS DUE TO BLOOD PRESSURE BEING 98/55. PATIENT ALSO REFUSED BENADRYL. PATIENT UNDATED ON PLAN OF CARE. PATIENT REQUESTED TO BE LEFT TO SLEEP. CALL LIGHT WITHIN REACH, BED IN LOWEST POSTION. WILL CONTINUE TO MONITOR
[2019-03-30 09:00] VITALS: BP 98/55
--- NOTE | 2019-03-30 09:32 | NUR ---
RETURNED TELE # 1 TO TELE STATION. NOW MED SURG PT.
[2019-03-30 11:40] VITALS: BP 104/70
--- NOTE | 2019-03-30 12:29 | NUR ---
RT WITH PATIENT NOW GIVING BREATHING TREATMENT
--- NOTE | 2019-03-30 14:07 | NUR ---
PATIENT VISUALIZED RIGHT SIDE LAYING ASLEEP IN BED, BREATHING REGULAR, NO DISTRESS NOTED. CALL LIGHT WITHIN REACH
[2019-03-30 16:42] VITALS: BP 113/72
--- NOTE | 2019-03-30 19:58 | NUR ---
PT CURRENTLY RESTING IN BED, C/O CHEST PRESSURE 7/10 PAIN, MEDICATED PAIN PER EMAR. A/O X4, DROWSY. NO TELE, MED/SURG. PULSES PALPABLE IN ALL EXTREMITIES, NO EDEMA NOTED. LUNG SOUNDS DIMINISHED IN BILATERAL BASES, DENIES SOB. BOWEL SOUNDS ACTIVE, LAST BM 03/29/19. VOIDING WELL. GENERALIZED WEAKNESS, AMBULATORY WITH ASSIST. SKIN INTACT. IV PATENT AND INTACT. BED IN LOWEST POSITION, SIDE RAILS UP X2, CALL LIGHT WITHIN REACH. WILL CONTINUE TO MONITOR.
[2019-03-30 20:43] VITALS: BP 100/56
--- NOTE | 2019-03-30 23:58 | NUR ---
PT CURRENTLY RESTING IN BED, NO ACUTE DISTRESS. WILL CONTINUE TO MONITOR.
[2019-03-31 05:17] VITALS: BP 108/62
--- NOTE | 2019-03-31 06:20 | NUR ---
PT SLEPT PERIODICALLY THROUGHOUT NIGHT, NO ACUTE DISTRESS. ALL NEEDS MET AND ATTENDED TO. NO SIGNIFICANT CHANGES. MEDICATED PAIN PER EMAR. IV PATENT AND INTACT. BED IN LOWEST POSITION, SIDE RAILS UP X2, CALL LIGHT WITHIN REACH. WILL ENDORSE CARE TO ONCOMING NURSE.
[2019-03-31 06:45] LABS: CARBON DIOXIDE 23.7 mmol/L (21-32); CHLORIDE SERUM 111 mmol/L (98-107); CREATININE SERUM 0.8 mg/dL (0.6-1.0); GFR1 > 60 mL/min; GLUCOSE SERUM 69 mg/dL (74-106); POTASSIUM SERUM 3.9 mmol/L (3.5-5.1); SODIUM SERUM 145 mmol/L (136-145)
[2019-03-31 07:13] LABS: BASOPHIL % 1.2 % (0-2); PLATELET COUNT 217 x10^3mcL (130-400)
[2019-03-31 07:34] LABS: RED CELL DISTRIBUTION WIDTH 16.4 % (11.5-14.5)
--- NOTE | 2019-03-31 08:00 | NUR ---
SHIFT ASSISSMENT DONE. PATIENT SLEEPY, AROUSABLE. SPEECH CLEAER. NO RESP DISTRESS ON RA. O2 SAT 96%. BREATHING SOUND DIMINISHED JOSE BASES. NO TELE MONITOR. DENIED CHEST PAIN. TOLERATED CARDIAC DIET BREAKFAST. NON /V. BM THIS AM. VOID VIA BRP WITHOUT ASSIST. GAIT STEADY. IVF OF NS 50CC/HR, IV SITE TO L HAND INTACT. NO S/S OF PAIN NOW. CALL LIGHT IN REACH.
[2019-03-31 09:21] VITALS: BP 109/71
[2019-03-31 13:41] VITALS: BP 109/70
--- NOTE | 2019-03-31 16:42 | NUR ---
C/O CHEST PAIN 10/10, ULTRAM 50MG PO GIVEN. COTINUE MONITOR.
[2019-03-31 17:04] VITALS: BP 113/74
[2019-03-31 18:04] VITALS: BP 100/79
--- NOTE | 2019-03-31 18:16 | NUR ---
C/O SOB, BUT O2 SAT 98% ON RA. BREATHING SOUND CLEAR JOSE. ATIVAN 1MG IVP GIVEN. CONTINUE MONITOR.
--- NOTE | 2019-03-31 19:20 | NUR ---
AWAKE. NO C/O CHEST PAIN. NO SOB. ENDORSED CARE TO NOC NURSE.
--- NOTE | 2019-03-31 19:25 | NUR ---
RECIEVED PT SLEEPING IN BED WITH NO ACUTE DISTRESS, PT EASILY AROUSABLE TO VERBAL STIMULI, ASSESSMENT PERFORMED AT THIS TIME, PT DENIES RESPIRATORY DISTRESS AT THIS TIME, PT A/OX4 NO COMPLAINTS OF DILLARD OR DIZZINESS, PT DENIES CHEST PAIN AT THIS TIME,SAFETY PRECAUTIONS IN PLACE, WILL CONTINUE TO MONITOR
[2019-03-31 20:19] VITALS: BP 109/71
--- NOTE | 2019-03-31 22:45 | NUR ---
PT SLEEPING IN BED WITH NO ACUTE SIGNS OF DISTRESS, NO SOB NOTED AT THIS TIME, RESPIRATIONS EVEN AND UNLABORED, SAFETY PRECAITONS IN PLACE, WILL CONTINUE TO MONITOR
--- NOTE | 2019-03-31 23:52 | NUR ---
PT UP AND AMBULATED TO THE BATHROOM, PT REQUESTING PUDDING, MILK, AND GHRAM CRACKERS, ALL NEEDS ATTENDED TO, PT DENIES SOB OR CHEST PAIN, SAFETY PRECAUTIONS IN PLACE, WILL CONTINUE TO MONITOR.
--- NOTE | 2019-04-01 01:18 | NUR ---
PT SLEEPING IN BED WITH NO ACUTE DISTRESS NOTED AT THIS TIME, SITTER AT BEDSIDE, SAFETY PRECAUTIONS IN PLACE, WILL CONTINUE TO MONITOR
--- NOTE | 2019-04-01 01:28 | NUR ---
PT SLEEPING IN BED ON LEFT SIDE WITH NO ACUTE DISTRESS NOTED, RESPIRATIONS EVEN AND UNLABORED, SAFETY PRECAUTIONS IN PLACE, WILL CONTINUE TO MONITOR
--- NOTE | 2019-04-01 03:55 | NUR ---
PT SLEEPING ON RIGHT SIDE, NO ACUTE DISTRESS NOTED AT THIS TIME, RESPIRATIONS EVEN AND UNLABORED, SAFETY PRECAUTIONS IN PLACE, WILL CONTINUE TO MONITOR
--- NOTE | 2019-04-01 05:06 | NUR ---
PT SLEPT COMFORTABLY THROUGH MOST OF THE NIGHT, PT WAS ABLE TO AMBULATE TO THE RESTROOM, THE PT HAD NO SOB OR CHEST PAIN THROUGHOUT SHIFT, SAFETY PRECAUTIONS WERE MAINTAINED, WILL CONTINUE TO MONITOR AND ENDORSE CARE TO ONCOMING SHIFT
[2019-04-01 06:20] VITALS: BP 97/65
--- NOTE | 2019-04-01 07:50 | NUR ---
RECEIVED PT FROM CUT OFF MAN. PT AWAKE BUT DROWSY, A/OX4. PT ON ROOM AIR WITH NO RESP DISTRESS NOTED. PT STATES HER STERNUM HURTS. IV ACCESS LH INFUSING NS AT 50ML/HR. C/D/I. PERIPHERAL PULSES PALPABLE, NO EDEMA NOTED. NO APPARENT ISSUES WITH ELIMINATION AT THIS TIME. PT NOTED TO HAVE GENERALIZED WEAKNESS. SAFETY MEASURES IN PLACE, BED LOW AND LOCKED. CALL LIGHT WITHIN REACH.
[2019-04-01 08:07] LABS: BASOPHIL % 0.9 % (0-2); PLATELET COUNT 222 x10^3mcL (130-400)
[2019-04-01 08:28] LABS: RED CELL DISTRIBUTION WIDTH 16.7 % (11.5-14.5)
[2019-04-01 08:30] LABS: CALCIUM 8.9 mg/dL (8.5-10.1); CHLORIDE SERUM 112 mmol/L (98-107); CREATININE SERUM 0.8 mg/dL (0.6-1.0); GFR1 > 60 mL/min; GLUCOSE SERUM 96 mg/dL (74-106); POTASSIUM SERUM 4.1 mmol/L (3.5-5.1); SODIUM SERUM 144 mmol/L (136-145)
[2019-04-01 09:30] VITALS: BP 93/51
--- NOTE | 2019-04-01 09:50 | NUR ---
DUE MEDS ADMINISTERED. PT DROWSY BUT COMPLIANT WITH MEDICATIONS. BP MEDS HELD AT THIS TIME. PT BP 93/57. NO ACUTE DISTRESS OR DISCOMFORT NOTED AT THIS TIME. WILL CONTINUE TO MONITOR.
--- NOTE | 2019-04-01 11:13 | NUR ---
PT SLEEPING AT THIS TIME WITH NO ACUTE DISTRESS OR DISCOMFORT NOTED. O2 SAT 94% ON ROOM AIR, BREATHING EVEN AND UNLABORED.
[2019-04-01] MEDS ORDERED: MEDDP PO (13:18)
[2019-04-01] MEDS ORDERED: ZITHROMAX TRI-500 MG PO (13:20)
[2019-04-01] MEDS ORDERED: ATORVASTATIN CA40 M1 PO (13:38)
[2019-04-01] MEDS ORDERED: RAN500A PO (13:39)
[2019-04-01] MEDS ORDERED: LISINOPRIL20 MG PO (13:40)
[2019-04-01] MEDS ORDERED: BRILINTA90 M1 PO (13:42)
[2019-04-01] MEDS ORDERED: LOPRESSOR50 M1 PO (13:44)
[2019-04-01 14:22] VITALS: BP 93/51
--- NOTE | 2019-04-01 15:30 | NUR ---
PT DISCHARGE INSTRUCTIONS/EDUCATION AND PRESCRIPTIONS GIVEN TO PATIENT. PT STATED SHE NEEDED ALBUTEROL UPON DISCHARGE. MADE EMBER CERVANTES CLINICAL PHARMACOLOGIST AWARE, WILL CALL IN PRESCRIPTION TO PT PHARMACY. PT TO FOLLOW UP WITH PCP WITH APPT PROVIDED. UPON SIGNING PAPERWORK, PT OVERHEARD ON PHONE SAYING "THEY ARE KICKING ME OUT, I WILL BE IN MY CAR SITTING AT YOUR HOUSE." PREVIOUSLY PT SAID HER DAUGHTER WAS GETTING OFF AT 3 AND WOULD BE COMING. PT ANGRILY RIPPED HER IV OUT OF HER HAND (CATHETER INTACT), BLEEDING EVERYWHERE STATING "DO NOT TOUCH ME". PT REFUSED WHEELCHAIR FOR DISCHARGE. PT ACCOMPANIED TO [facility]. PT REMINDED IF SHE DIDNT AGREE WITH DISCHARGE, SHE HAS A RIGHT TO APPEAL. PT ANGRILY SAID TO "LEAVE ME ALONE, I AM GOING TO [facility]." DISCHARGE OFFICE AND MARGARINE CHURN OPERATOR AT [facility] AWARE OF SITUATION.
[2019-04-01] MEDS ORDERED: PROAIR HFA8.5 GM IH (15:48)
[2019-04-01] MEDS ORDERED: BREO ELLIPTA1 PO1 IH (15:48)
== END 2019-04-01 15:47 | disposition home or self-care (01) | DRG 871 ==
LOC: ED 06:07 → MU 11:40 → DU 11:40 → MU 03-30 09:33
PROVIDERS: Emergency Medicine; ADMIT Internal Medicine
DX: A41.9 Sepsis, unspecified organism (principal); J18.9 Pneumonia, unspecified organism; F31.60 Bipolar disorder, current episode mixed, unspecified; I25.5 Ischemic cardiomyopathy; K21.9 Gastro-esophageal reflux disease without esophagitis; I25.10 Atherosclerotic heart disease of native coronary artery without angina pectoris; F15.10 Other stimulant abuse, uncomplicated; E11.9 Type 2 diabetes mellitus without complications; E78.5 Hyperlipidemia, unspecified; I10 Essential (primary) hypertension; Z59.0 Homelessness; I25.2 Old myocardial infarction; Z68.30 Body mass index [BMI] 30.0-30.9, adult; F17.210 Nicotine dependence, cigarettes, uncomplicated; Z79.84 Long term (current) use of oral hypoglycemic drugs; Z95.5 Presence of coronary angioplasty implant and graft; Z85.41 Personal history of malignant neoplasm of cervix uteri; Z91.19 Patient's noncompliance with other medical treatment and regimen
CPT/HCPCS: 82962; 83880; G0378; J0456; J0696; J1650; J1956; J2060; J7030; J7613; J7644; Q0092; Q0163

== ENCOUNTER 2019-04-22 10:13 | Emergency (ER) | payer MEDICARE, OTHER ==
[~2019-04-22] VITALS: Ht 160 cm; Wt 77.6 kg
[~2019-04-22 10:13] MED LIST changes: +ATORVASTATIN CA40 M1 PO; +LISINOPRIL20 MG PO; +LOPRESSOR50 M1 PO; +RAN500A PO
[2019-04-22 10:18] VITALS: Ht 160 cm; Wt 77.6 kg
[2019-04-22 10:56] LABS: BASOPHIL % 0.8 % (0-2); PLATELET COUNT 228 x10^3mcL (130-400)
[2019-04-22 10:59] LABS: CALCIUM 8.9 mg/dL (8.5-10.1); CARBON DIOXIDE 26.9 mmol/L (21-32); CHLORIDE SERUM 108 mmol/L (98-107); CREATININE SERUM 0.7 mg/dL (0.6-1.0); GFR1 > 60 mL/min; GLUCOSE SERUM 83 mg/dL (74-106); POTASSIUM SERUM 4.2 mmol/L (3.5-5.1); SODIUM SERUM 142 mmol/L (136-145)
[2019-04-22 11:04] LABS: ALKALINE PHOSPHATASE 65 U/L (46-116); ALT/SGPT 26 U/L (14-59); AST/SGOT 18 U/L (15-37); BILIRUBIN TOTAL 0.4 mg/dL (0.20-1.00); TOTAL PROTEIN, SERUM 6.7 g/dL (6.4-8.2)
[2019-04-22 11:05] LABS: ALBUMIN 3.2 g/dL (3.4-5.0); RED CELL DISTRIBUTION WIDTH 15.7 % (11.5-14.5)
[2019-04-22 12:18] VITALS: BP 138/72
== END 2019-04-22 12:18 | disposition home or self-care (01) ==
LOC: ED 10:13
PROVIDERS: Emergency Medicine
DX: J18.9 Pneumonia, unspecified organism (principal); J44.9 Chronic obstructive pulmonary disease, unspecified; I10 Essential (primary) hypertension; E11.9 Type 2 diabetes mellitus without complications; K21.9 Gastro-esophageal reflux disease without esophagitis; F32.9 Major depressive disorder, single episode, unspecified; F41.9 Anxiety disorder, unspecified; Z98.890 Other specified postprocedural states; Z91.041 Radiographic dye allergy status
CPT/HCPCS: 36415; 83880; J0696; J7060; J7512; J7613; J7644; Q0092

== ENCOUNTER 2019-04-28 04:37 | Inpatient (IN) | payer MEDICARE, OTHER ==
[~2019-04-28] VITALS: Ht 160 cm; Wt 78.0 kg
[2019-04-28 04:41] VITALS: Ht 160 cm; Wt 78.0 kg
--- NOTE | 2019-04-28 04:46 | NUR ---
PT BIBA WITH C/O GENERALIZED WEAKNESS, DIZZINESS, AND RIGHT-SIDE CHEST PRESSURE PT STS THE SYMPTOMS BEGAN AFTER SHE GOT UP FROM HER BED TO GO TO THE RESTROOM. PT RATES HER CHEST PRESSURE 8/10. PT'S CURRENT O2 SATURATION 99% ON RA. PT PLACED ON 2 L NC AT THIS TIME, STS SHE FEELS SOB. PT STS SHE HAS HAD DIARRHEA, PT HAS HAD ABOUT 4-5 BM TODAY. PT WAS HERE LAST WEEK AND WAS DIAGNOSED WITH PNA. PT IS A SMOKER FOR 45 YEARS NOW. PT RECEIVED 3.4 OF ASPIRIN ENROUTE. PT CONNECTED TO FULL IMMIGRATION PATROL INSPECTOR. WILL CONT TO MONITOR.
--- NOTE | 2019-04-28 05:06 | NUR ---
PT STS, "I TOOK METH FOR 45 DAYS STRAIGHT AND THE LAST TIME I USED IT WAS 4 DAYS AGO. I FELT DEPRESSED. I DON'T WANT MY CHILDREN TO KNOW". PT STS SHE FEELS ANXIOUS AT THIS TIME. DR. LONG MADE AWARE
--- NOTE | 2019-04-28 05:06 | NUR ---
RESIDENT IN DIAGNOSTIC RADIOLOGY AT BEDSIDE FOR LAB BLOOD DRAW
--- NOTE | 2019-04-28 05:18 | NUR ---
X-RAY TECH AT BEDSIDE
--- NOTE | 2019-04-28 05:30 | NUR ---
PT MADE AWARE A URINE SAMPLE IS NEEDED. PER THE PT, SHE CAN NOT VOID AT THIS TIME. WILL NOTIFY ONCE SHE CAN VOID
[2019-04-28 05:38] LABS: BASOPHIL % 0.5 % (0-2); PLATELET COUNT 251 x10^3mcL (130-400)
[2019-04-28 05:41] LABS: RED CELL DISTRIBUTION WIDTH 15.1 % (11.5-14.5)
--- NOTE | 2019-04-28 05:45 | NUR ---
PT HAD A SMALL LOOSE BROWN BM. STOOL SENT FOR STOOL CX
[2019-04-28 05:56] LABS: CARBON DIOXIDE 23.4 mmol/L (21-32); CHLORIDE SERUM 107 mmol/L (98-107); CREATININE SERUM 0.9 mg/dL (0.6-1.0); GFR1 > 60 mL/min; GLUCOSE SERUM 89 mg/dL (74-106); POTASSIUM SERUM 3.7 mmol/L (3.5-5.1); SODIUM SERUM 140 mmol/L (136-145)
[2019-04-28 06:01] LABS: ALKALINE PHOSPHATASE 80 U/L (46-116); ALT/SGPT 21 U/L (14-59); AST/SGOT 17 U/L (15-37); BILIRUBIN TOTAL 0.22 mg/dL (0.20-1.00); CHOLESTEROL 153 mg/dL (<200); HDL CHOLESTEROL 49 mg/dL (40-60); TOTAL PROTEIN, SERUM 6.9 g/dL (6.4-8.2)
--- NOTE | 2019-04-28 06:25 | NUR ---
PT IS SLEEPING, EASILY AROUSABLE. NO S/S OF ACUTE DISTRESS NOTED. BED IN LOW POSITION. CALL LIGHT IN REACH. WILL CONT TO MONITOR
--- NOTE | 2019-04-28 07:15 | NUR ---
REPORT GIVEN TO GARY MURRAY. PT IS A/OX4. BREATHING IS E/U ON RA. NO S/S OF ACUTE DISTRESS NOTED. RAC IV REMAINS IN PLACE WITH NO S/S OF INFILTRATION NOTED. BED IN LOW POSITION. CALL LIGHT IN REACH.
--- NOTE | 2019-04-28 07:17 | NUR ---
REPORT GIVEN TO GARY MURRAY. PT IS A/OX4. BREATHING IS E/U ON RA. NO S/S OF ACUTE DISTRESS NOTED. FRIEND AT BEDSIDE. PT IN VIEW OF THE NURSES STATION. BED IN LOW POSITION.
--- NOTE | 2019-04-28 07:31 | NUR ---
REPORT GIVEN TO MOISES MURRAY,UPDATED ON STATUS, ALBS AND VITALS. PT STABLE FOR TRANSFER. ALL BELONGINGS WITH PT. PT BEING TRANSFERRED TO ROOM 208B
--- NOTE | 2019-04-28 08:03 | NUR ---
CANCELLATION REQUESTED FOR ECHOCARDIOGRAM
[2019-04-28 08:09] LABS: CHOLESTEROL/HDL RATIO 3.1
[2019-04-28 08:14] VITALS: BP 129/77
[2019-04-28 08:16] LABS: FREE T4 0.82 ng/dL (0.76-1.46); FREE THYROXINE INDEX 2.5 ug/dL (1.4-4.5); T4(THYROXINE) 7.4 ug/dL (4.7-13.3)
--- NOTE | 2019-04-28 08:30 | NUR ---
RECIEVED PATIENT WHO ADMITS TO METHAMPHETAMINE USE AND STATES SHE IS AWARE IT IS A POOR JUDGEMENT ON HER PART. SHE STATES SHE TAKES XANAX AT HOME FOR ANXIETY AND HAS HAD A HARD LIFE THAT DRICVVES HER TO DRUG USE. SHE IS A SMOKER AND HAS BEEN IN [facility]. SHE HAS HAD ASPIRIN AND ZOFRAN IN THE ER AND SHE HAS BEEN WITHOUT NAUSEA AT THIS TIME. SHE IS ASKING FOR FOOD BUT SHE IS NPO AT [facility]. SHE HAS BEEN HAVING DIARRHEA AND WITH HISTORY OF CERVICAL CA . GERD ,GALLSTONES, BIPOLAR AND MANIC DEPRESSION WELL HAS TWO NH'S AND ANXIETY AND LOWER LEG SURGERY WITH NO ANKLE BONE TO THE LEFT ANKEL DUE TO FALL. SHE HAS CHEST PAIN TO THE RIGHT SIDE AND HADS PAIN 6/10. SHE WHAT HER ANAXA SHE TATKES AT HOME FOR ANXIETY. SHE DOES NOT WANT FAMILY TO KNOW ANYTHING ABOUT HER STAY IN THE HOPITAL.
[2019-04-28 08:36] VITALS: BP 121/77
[2019-04-28 13:30] LABS: AMPHETAMINE QUAL UR POSITIVE (See below)
[2019-04-28 13:43] LABS: UA SPECIFIC GRAVITY >=1.030 (1.005-1.035); microscopic required? YES; urine erythrocyte NEGATIVE (NEGATIVE)
[2019-04-28 13:47] VITALS: BP 100/54
[2019-04-28 17:23] VITALS: BP 113/64
--- NOTE | 2019-04-28 17:40 | NUR ---
DR JARVIS CALLED BACK AND WILL BE HAVING DIALYSIS TOMORROW. WILL ADVISE THE ON COMIING SHIFT.
--- NOTE | 2019-04-28 19:30 | NUR ---
RECIEVED PT RESTING IN BED WITH NO ACUTE DISTRESS NOTED AT THIS TIME, ASSESSMENT PERFORMED, PT IS A/OX4 NO COMPLAINTS OF DILLARD OR DIZZINESS, PT DENIES SOB OR CHEST PAIN/DISCOMFORT, IV TO THE RAC NS AT 100ML/HR, TELE 13 SB, SAFETY PRECAUTIONS IN PLACE, WILL CONTINUE TO MONITOR
[2019-04-28 20:29] VITALS: BP 122/59
--- NOTE | 2019-04-28 22:15 | NUR ---
PT RESTING IN BED WITH NO ACUTE DISTRESS NOTED AT THIS TIME, PT EASILY AROUSABLE TO VERBAL STIMULI, DENIES SOB OR PAIN AT THIS TIME, RESPIRATIONS EVEN AND UNLABORED, SAFETY PRECAUTIONS IN PLACE, WILL CONTINUE TO MONITOR
--- NOTE | 2019-04-29 02:01 | NUR ---
PT RESTING IN BED ON RIGHT SIDE, NO ACUTE DISTRESS NOTED, NO SIGNS OF PAIN OR RESPIRATORY DISTRESS AT THIS TIME, SAFETY PRECAUTIONS IN PLACE, WILL CONTINUE TO MONITOR
--- NOTE | 2019-04-29 05:06 | NUR ---
PT SUFFERED NO ACUTE DISTRESS, CHEST PAIN OR SOB THROUGH THE SHIFT, PT DENIES PAIN AND RESTED COMFORTABLY, PT REMAINED EASILY AROUSABLE THROUGH SHIFT, PT REMAINED A/OX 4 WITH NO COMPLAINTS OF DILLARD OR DIZZINESS, PT AMBULATED ONCE TO THE RESTROOM, SAFETY PRECAUTIONS MAINTAINED, WILL CONTINUE TO MONITOR AND ENDORSE CARE TO ONCOMING RN
[2019-04-29 05:27] VITALS: BP 145/86
[2019-04-29 06:29] LABS: BASOPHIL % 0.9 % (0-2); PLATELET COUNT 241 x10^3mcL (130-400)
[2019-04-29 06:39] LABS: CALCIUM 8.7 mg/dL (8.5-10.1); CARBON DIOXIDE 25.2 mmol/L (21-32); CHLORIDE SERUM 108 mmol/L (98-107); CREATININE SERUM 0.9 mg/dL (0.6-1.0); GFR1 > 60 mL/min; GLUCOSE SERUM 87 mg/dL (74-106); PHOSPHOROUS 3.9 mg/dL (2.5-4.9); POTASSIUM SERUM 3.8 mmol/L (3.5-5.1); SODIUM SERUM 140 mmol/L (136-145)
[2019-04-29 06:51] LABS: RED CELL DISTRIBUTION WIDTH 15.6 % (11.5-14.5)
--- NOTE | 2019-04-29 07:15 | NUR ---
RECEIVED PT. IN BED A/A/O X3. NO SOB, NO N/V NOTED. PT. DENIES ANY PAIN AT THIS TIME. NS RUNNING AT 100 CC/HR VIA IV SITE AT R AC. SCD TO BLE MAINTAINED. BED IN LOW POS., CALL LIGHT WITHIN REACH. SIDE RAILS UP X3.
[2019-04-29 09:30] VITALS: BP 124/64
[2019-04-29 13:54] VITALS: BP 112/64
[2019-04-29] MEDS ORDERED: COR3 PO (15:18)
[2019-04-29] MEDS ORDERED: ATORVASTATIN CA40 M1 PO (15:18)
[2019-04-29] MEDS ORDERED: ZES5 PO (15:19)
[2019-04-29] MEDS ORDERED: ECO81 PO (15:19)
--- NOTE | 2019-04-29 16:00 | NUR ---
D/C HOME INSTRUCTIONS GIVEN TO PT. WHO VERBALIZED UNDERSTANDING OF INSTRUCTIONS. IV H/L TO R AC REMOVED. PRESCRIPTIONS GIVEN. TELE. MONITOR #23 REMOVED AND RETURNED TO TELE. MONITOR STATION.
--- NOTE | 2019-04-29 17:00 | NUR ---
PT. IS BEING DISCHARGED IN STABLE CONDITION VIA WHEELCHAIR. ALL BELONGINGS SENT HOME WITH PT. UPON DISCHARGE.
== END 2019-04-29 17:05 | disposition home or self-care (01) | DRG 194 ==
LOC: ED 04:37 → DU 07:14 → MU 04-29 17:05
PROVIDERS: Emergency Medicine; ADMIT Internal Medicine
DX: J18.9 Pneumonia, unspecified organism (principal); I50.32 Chronic diastolic (congestive) heart failure; F15.288 Other stimulant dependence with other stimulant-induced disorder; I11.0 Hypertensive heart disease with heart failure; J44.9 Chronic obstructive pulmonary disease, unspecified; I25.5 Ischemic cardiomyopathy; I25.10 Atherosclerotic heart disease of native coronary artery without angina pectoris; F31.9 Bipolar disorder, unspecified; E11.9 Type 2 diabetes mellitus without complications; E78.5 Hyperlipidemia, unspecified; I25.2 Old myocardial infarction; F12.10 Cannabis abuse, uncomplicated; F17.210 Nicotine dependence, cigarettes, uncomplicated; Z68.30 Body mass index [BMI] 30.0-30.9, adult; Z85.41 Personal history of malignant neoplasm of cervix uteri; Z95.5 Presence of coronary angioplasty implant and graft; Z79.84 Long term (current) use of oral hypoglycemic drugs; Z91.14 Patient's other noncompliance with medication regimen
CPT/HCPCS: 83880; 84439; 87046; 87046-59; 94150; 99406; G0378; J2405; J2543; J7030; J7620; Q0092

== ENCOUNTER 2019-10-30 09:45 | Emergency (ER) | payer MEDICARE, OTHER ==
[~2019-10-30] VITALS: Ht 157.5 cm; Wt 75.7 kg
[~2019-10-30 09:45] MED LIST changes: +COR3 PO; +ECO81 PO; +ZES5 PO
[2019-10-30 09:55] VITALS: Ht 157.5 cm; Wt 75.7 kg
[2019-10-30 10:48] LABS: BASOPHIL % 0.9 % (0-2); PLATELET COUNT 248 x10^3mcL (130-400); RED CELL DISTRIBUTION WIDTH 16.7 % (11.5-14.5)
[2019-10-30 10:51] LABS: CALCIUM 8.3 mg/dL (8.5-10.1); CARBON DIOXIDE 30.7 mmol/L (21-32); CHLORIDE SERUM 108 mmol/L (98-107); CREATININE SERUM 0.7 mg/dL (0.6-1.0); GFR1 > 60 mL/min; GLUCOSE SERUM 102 mg/dL (74-106); POTASSIUM SERUM 4.2 mmol/L (3.5-5.1); SODIUM SERUM 144 mmol/L (136-145)
[2019-10-30 10:56] LABS: ALKALINE PHOSPHATASE 79 U/L (46-116); ALT/SGPT 31 U/L (14-59); AST/SGOT 21 U/L (15-37); BILIRUBIN TOTAL 0.4 mg/dL (0.20-1.00); TOTAL PROTEIN, SERUM 6.6 g/dL (6.4-8.2)
[2019-10-30 12:31] VITALS: BP 134/71
== END 2019-10-30 12:31 | disposition home or self-care (01) ==
LOC: ED 09:45
DX: J44.1 Chronic obstructive pulmonary disease with (acute) exacerbation (principal); I11.0 Hypertensive heart disease with heart failure; I50.9 Heart failure, unspecified; G89.29 Other chronic pain; Z91.041 Radiographic dye allergy status
CPT/HCPCS: 83880; J1940; J2930; J7613; J7644

== ENCOUNTER 2019-11-01 09:11 | Emergency (ER) | payer MEDICARE, OTHER ==
[~2019-11-01] VITALS: Ht 157.5 cm; Wt 77.1 kg
[2019-11-01 09:15] VITALS: Ht 157.5 cm; Wt 77.1 kg
[2019-11-01 09:59] LABS: CALCIUM 7.9 mg/dL (8.5-10.1); CARBON DIOXIDE 26.1 mmol/L (21-32); CHLORIDE SERUM 107 mmol/L (98-107); CREATININE SERUM 0.8 mg/dL (0.6-1.0); GFR1 > 60 mL/min; GLUCOSE SERUM 104 mg/dL (74-106); POTASSIUM SERUM 3.5 mmol/L (3.5-5.1); SODIUM SERUM 143 mmol/L (136-145)
[2019-11-01 10:04] LABS: ALKALINE PHOSPHATASE 78 U/L (46-116); ALT/SGPT 29 U/L (14-59); AST/SGOT 18 U/L (15-37); BILIRUBIN TOTAL 0.4 mg/dL (0.20-1.00)
[2019-11-01 10:06] VITALS: BP 145/83
[2019-11-01 10:06] LABS: ALBUMIN 3.2 g/dL (3.4-5.0)
[2019-11-01 10:18] LABS: BASOPHIL % 0.8 % (0-2); PLATELET COUNT 259 x10^3mcL (130-400); RED CELL DISTRIBUTION WIDTH 16.5 % (11.5-14.5)
== END 2019-11-01 10:49 | disposition left against medical advice (07) ==
LOC: ED 09:11
PROVIDERS: Emergency Medicine
DX: R06.02 Shortness of breath (principal); R07.89 Other chest pain; J44.9 Chronic obstructive pulmonary disease, unspecified; I10 Essential (primary) hypertension; E11.9 Type 2 diabetes mellitus without complications; K21.9 Gastro-esophageal reflux disease without esophagitis; Z91.041 Radiographic dye allergy status
CPT/HCPCS: 83880; J1940; J7512; J7613; J7644; Q0092

== ENCOUNTER 2019-12-06 22:38 | Inpatient (IN) | payer MEDICARE, OTHER ==
[~2019-12-06] VITALS: Ht 157.5 cm; Wt 99.3 kg
[2019-12-06 22:54] LABS: BASOPHIL % 1.2 % (0-2); PLATELET COUNT 281 x10^3mcL (130-400)
[2019-12-06 22:59] LABS: RED CELL DISTRIBUTION WIDTH 16.7 % (11.5-14.5)
[2019-12-06 23:13] LABS: CALCIUM 8.5 mg/dL (8.5-10.1); CARBON DIOXIDE 32.4 mmol/L (21-32); CHLORIDE SERUM 105 mmol/L (98-107); CREATININE SERUM 0.7 mg/dL (0.6-1.0); GFR1 > 60 mL/min; GLUCOSE SERUM 113 mg/dL (74-106); SODIUM SERUM 143 mmol/L (136-145)
[2019-12-06 23:16] LABS: ALKALINE PHOSPHATASE 94 U/L (46-116); ALT/SGPT 26 U/L (14-59); AST/SGOT 28 U/L (15-37); BILIRUBIN TOTAL 0.5 mg/dL (0.20-1.00); TOTAL PROTEIN, SERUM 7.2 g/dL (6.4-8.2)
[2019-12-07 01:19] VITALS: BP 127/80
[2019-12-07 01:23] VITALS: Ht 157.5 cm; Wt 99.3 kg
[2019-12-07 01:26] LABS: CHOLESTEROL/HDL RATIO 3.3
[2019-12-07 01:33] LABS: FREE T4 0.96 ng/dL (0.76-1.46); FREE THYROXINE INDEX 2.4 ug/dL (1.4-4.5); T4(THYROXINE) 7.9 ug/dL (4.7-13.3)
[2019-12-07 02:04] LABS: T3 TOTAL 1.57 ng/mL
[2019-12-07 06:15] LABS: BASOPHIL % 0.9 % (0-2); PLATELET COUNT 264 x10^3mcL (130-400)
[2019-12-07 06:35] VITALS: BP 129/82
[2019-12-07 06:35] LABS: RED CELL DISTRIBUTION WIDTH 17.5 % (11.5-14.5)
[2019-12-07 06:53] LABS: CALCIUM 8.3 mg/dL (8.5-10.1); CARBON DIOXIDE 29.4 mmol/L (21-32); CHLORIDE SERUM 105 mmol/L (98-107); CREATININE SERUM 0.7 mg/dL (0.6-1.0); GFR1 > 60 mL/min; GLUCOSE SERUM 97 mg/dL (74-106); MAGNESIUM 2.3 mg/dL (1.8-2.4); PHOSPHOROUS 4.1 mg/dL (2.5-4.9); SODIUM SERUM 141 mmol/L (136-145)
[2019-12-07 08:36] VITALS: BP 132/90
[2019-12-07 12:40] VITALS: BP 127/92
[2019-12-07 17:38] VITALS: BP 128/84
[2019-12-07 21:47] VITALS: BP 126/87
[2019-12-08 05:44] VITALS: BP 125/90
[2019-12-08 07:00] VITALS: BP 141/93
[2019-12-08 12:30] VITALS: BP 126/85
[2019-12-08 16:00] VITALS: BP 118/72
[2019-12-08 20:00] VITALS: BP 105/63
[2019-12-09 06:21] VITALS: BP 132/92
[2019-12-09 08:48] LABS: BASOPHIL % 1.3 % (0-2); PLATELET COUNT 267 x10^3mcL (130-400)
[2019-12-09 09:10] LABS: CALCIUM 8.7 mg/dL (8.5-10.1); CARBON DIOXIDE 28.6 mmol/L (21-32); CHLORIDE SERUM 105 mmol/L (98-107); CREATININE SERUM 0.7 mg/dL (0.6-1.0); GFR1 > 60 mL/min; GLUCOSE SERUM 91 mg/dL (74-106); MAGNESIUM 2.2 mg/dL (1.8-2.4); PHOSPHOROUS 4.1 mg/dL (2.5-4.9); POTASSIUM SERUM 4.4 mmol/L (3.5-5.1); SODIUM SERUM 140 mmol/L (136-145)
[2019-12-09 09:22] VITALS: BP 137/90
[2019-12-09 13:07] VITALS: BP 122/72
[2019-12-09 13:33] LABS: microscopic required? NO
[2019-12-09 13:46] LABS: urine erythrocyte NEGATIVE (NEGATIVE)
[2019-12-09 14:05] LABS: AMPHETAMINE QUAL UR POSITIVE (See below)
[2019-12-09 16:57] VITALS: BP 108/68
[2019-12-09 20:00] VITALS: BP 118/72
[2019-12-10 06:55] LABS: CALCIUM 8.6 mg/dL (8.5-10.1); CARBON DIOXIDE 29.6 mmol/L (21-32); CHLORIDE SERUM 105 mmol/L (98-107); CREATININE SERUM 0.7 mg/dL (0.6-1.0); GFR1 > 60 mL/min; GLUCOSE SERUM 155 mg/dL (74-106); MAGNESIUM 1.9 mg/dL (1.8-2.4); POTASSIUM SERUM 4.7 mmol/L (3.5-5.1); SODIUM SERUM 141 mmol/L (136-145)
[2019-12-10 06:58] LABS: BASOPHIL % 0.1 % (0-2); PLATELET COUNT 249 x10^3mcL (130-400)
[2019-12-10 07:06] LABS: RED CELL DISTRIBUTION WIDTH 16.5 % (11.5-14.5)
[2019-12-10 09:00] VITALS: BP 125/64
[2019-12-10 13:00] VITALS: BP 120/74
[2019-12-10 17:13] VITALS: BP 139/96
[2019-12-11 09:30] VITALS: BP 133/83
[2019-12-11 12:46] VITALS: BP 132/90
[2019-12-11] MEDS ORDERED: ELIQUIS5 MG PO (12:59)
[2019-12-11 17:12] VITALS: BP 139/87
[2019-12-12 05:59] VITALS: BP 143/90
[2019-12-12 07:48] VITALS: BP 151/107
[2019-12-12 11:46] VITALS: BP 143/91
[2019-12-12 17:06] VITALS: BP 135/84
[2019-12-12 20:30] VITALS: BP 124/76
[2019-12-13 06:30] VITALS: BP 149/93
[2019-12-13 07:30] VITALS: BP 126/81
[2019-12-13 18:46] VITALS: BP 134/88
[2019-12-13 20:24] VITALS: BP 109/62
[2019-12-14 06:37] VITALS: BP 138/83
[2019-12-14 08:19] VITALS: BP 156/79
[2019-12-14 11:37] VITALS: BP 168/65
[2019-12-14 12:53] VITALS: BP 156/96
[2019-12-14 15:55] VITALS: BP 151/84
[2019-12-14 22:26] VITALS: BP 131/84
[2019-12-15 06:38] VITALS: BP 117/83
[2019-12-15 10:07] VITALS: BP 123/87
[2019-12-15 12:34] VITALS: BP 123/86
== END 2019-12-15 15:23 | disposition home or self-care (01) | DRG 64 ==
LOC: ED 22:38 → DU 12-07 00:05 → MU 12-12 17:03
PROVIDERS: Emergency Medicine; Internal Medicine; ADMIT Internal Medicine
DX: I63.9 Cerebral infarction, unspecified (principal); I21.A1 Myocardial infarction type 2; N17.0 Acute kidney failure with tubular necrosis; J18.9 Pneumonia, unspecified organism; Z68.41 Body mass index [BMI] 40.0-44.9, adult; I42.9 Cardiomyopathy, unspecified; E44.1 Mild protein-calorie malnutrition; G93.40 Encephalopathy, unspecified; R47.81 Slurred speech; G83.21 Monoplegia of upper limb affecting right dominant side; E11.9 Type 2 diabetes mellitus without complications; K21.9 Gastro-esophageal reflux disease without esophagitis; J44.9 Chronic obstructive pulmonary disease, unspecified; R29.704 NIHSS score 4; I11.0 Hypertensive heart disease with heart failure; I50.9 Heart failure, unspecified; I25.10 Atherosclerotic heart disease of native coronary artery without angina pectoris; E78.5 Hyperlipidemia, unspecified; F17.210 Nicotine dependence, cigarettes, uncomplicated; F12.10 Cannabis abuse, uncomplicated; F19.10 Other psychoactive substance abuse, uncomplicated; F15.10 Other stimulant abuse, uncomplicated; F32.9 Major depressive disorder, single episode, unspecified; I25.2 Old myocardial infarction; Z95.1 Presence of aortocoronary bypass graft; Z79.84 Long term (current) use of oral hypoglycemic drugs; Z85.41 Personal history of malignant neoplasm of cervix uteri; Z95.5 Presence of coronary angioplasty implant and graft; Z91.14 Patient's other noncompliance with medication regimen; Z87.01 Personal history of pneumonia (recurrent); Z90.710 Acquired absence of both cervix and uterus; Z95.0 Presence of cardiac pacemaker; Z88.5 Allergy status to narcotic agent; Z59.0 Homelessness
CPT/HCPCS: 82962; 83880; 84439; 92526-GN; 92610-GN; 97116-GP; A9577; G0378; J1650; J1940; J2920; J3535; Q0092; Q9967; U0002